=== PATIENT | female | born 1950 | race African-American/Black ===

== ENCOUNTER 2018-01-24 17:22 | Emergency (ER) | payer MEDICARE, BC ==
[~2018-01-24] VITALS: Ht 162.6 cm; Wt 77.6 kg
[~2018-01-24 17:22] MED LIST: ATOR10TA PO; HYDR25TA4 PO
--- NOTE | 2018-01-24 18:39 | NUR ---
Patient does not wish to proceed with medical care recommended by ([facility] ). Patient given information related to possible complications, up to and including , which could occur as a result of leaving the hospital at this time. Patient verbalizes understanding of risks involved due to leaving against medical advice. Patient has signed AMA form.
[2018-01-24 18:45] VITALS: BP 183/90
== END 2018-01-24 19:13 | disposition left against medical advice (07) ==
LOC: ER 17:24
DX: I10 Essential (primary) hypertension (principal); Z88.8 Allergy status to other drugs, medicaments and biological substances; Z53.20 Procedure and treatment not carried out because of patient's decision for unspecified reasons
CPT/HCPCS: 93005; 99283; A4606; Z7610